=== PATIENT | male | born 1945 | race Caucasian/White ===

== ENCOUNTER 2018-09-05 01:58 | Inpatient (IN) | payer MEDICARE, MEDICAID ==
[~2018-09-05] VITALS: Ht 172.7 cm; Wt 86.2 kg
[~2018-09-05 01:58] MED LIST: ALLO100T PO; ASPI-1159 PO; COR12 PO; CORDARONE PO; DUTA0.5C2 PO; FERR-63 PO; FURO-151 PO; GABA100C PO; GLV55 PO; IMDUR PO; KDUR10 PO; LEVO5TAB29 PO; MONT10TA21 PO; PLAVIX PO; SIMV40TA5 PO; TAMS-11 PO; TRAM50TA94 PO; VALS160T2 PO; ZET10 PO
[2018-09-05] MEDS: NITROGLYCERIN 0.4MG TABLET SL SL PRN ×2 (03:08→03:38)
[2018-09-05 04:34] LABS: HEMATOCRIT. 33.3 % (42.0-52.0); HEMOGLOBIN. 11.3 g/dL (14.0-18.0); MEAN CORPUSCULAR HEMOGLOBIN 32.5 pg (28.0-32.0); MEAN CORPUSCULAR VOLUME 95.9 fL (80.0-94.0); MEAN PLATELET VOLUME 8.6 fl (7.4-10.4); PLATELET 158 x1000/uL (130-400); RED BLOOD CELL COUNT 3.47 mill/uL (4.7-6.1); RED CELL DISTRIBUTION WIDTH 14.5 % (11.6-14.6)
[2018-09-05 04:40] LABS: CHLORIDE 114 mEq/L (98-107)
[2018-09-05 04:45] LABS: INR 1.1; PARTIAL THROMBOPLASTIN TIME 26.8 sec (23.4-31.0); PROTHROMBIN TIME 10.6 sec (9.1-11.1)
[2018-09-05 04:56] LABS: PLATELET ESTIMATE NORMAL
[2018-09-05] MEDS ORDERED: SODIUM CHLORIDE 0.9% 1,000 ML IV ONE (05:30)
[2018-09-05] MEDS ORDERED: ACETAMINOPHEN 325MG TABLET PO PRN (07:45)
[2018-09-05] MEDS ORDERED: IPRATROPIUM/ALBUTEROL 0.5-3(2.5)MG/3ML NEB INH PRN (07:45)
[2018-09-05] MEDS ORDERED: ONDANSETRON HCL 4MG/2ML INJ IV PRN (07:45)
[2018-09-05] MEDS ORDERED: CLONIDINE 0.1MG TABLET PO PRN (07:45)
[2018-09-05] MEDS ORDERED: DOCUSATE SODIUM 100MG CAPSULE PO PRN (07:45)
[2018-09-05] MEDS ORDERED: HYDROCODONE/ACETAMINOPHEN 5/325MG TABLET PO PRN (07:45)
[2018-09-05] MEDS ORDERED: MORPHINE SULFATE 10 MG/ML CPJ IV PRN (07:45)
[2018-09-05 10:38] VITALS: BP 110/55
[2018-09-05] MEDS: ASPIRIN 81MG EC TABLET PO SCH (11:34)
[2018-09-05] MEDS: ENOXAPARIN 30MG/0.3ML SYR SUBCUT SCH ×2 (11:35→20:21)
[2018-09-05 12:00] VITALS: BP 122/70
[2018-09-05] MEDS ORDERED: DEXTROSE 50% WATER 50ML SYRINGE IV PRN (12:45)
[2018-09-05] MEDS: BLOOD SUGAR DIAGNOSTIC STRIP TEST SCH ×3 (12:56→19:55)
[2018-09-05] MEDS: INSULIN LISPRO 100 UNITS/ML SUBCUT SCH ×3 (13:06→20:22)
[2018-09-05 16:00] VITALS: BP 129/70
[2018-09-05 16:40] LABS: CREATINE KINASE MB FRACTION 1.2 ng/mL (0.5-3.6)
[2018-09-05 16:43] LABS: CREATINE KINASE 76 IU/L (39-308)
[2018-09-05 20:00] VITALS: BP 126/72
[2018-09-05] MEDS: CARVEDILOL 12.5MG TABLET PO SCH (20:21)
[2018-09-05] MEDS ORDERED: ATORVASTATIN CALCIUM 40MG TABLET PO SCH (21:00)
[2018-09-06] VITALS: BP 107/50
[2018-09-06 00:22] LABS: CREATINE KINASE 72 IU/L (39-308)
[2018-09-06 00:23] LABS: CREATINE KINASE MB FRACTION 1.2 ng/mL (0.5-3.6)
[2018-09-06 04:00] VITALS: BP 106/54
[2018-09-06] MEDS: BLOOD SUGAR DIAGNOSTIC STRIP TEST SCH ×2 (05:36→13:30)
[2018-09-06 06:14] LABS: HEMATOCRIT. 31.3 % (42.0-52.0); HEMOGLOBIN. 10.8 g/dL (14.0-18.0); MEAN PLATELET VOLUME 8.9 fl (7.4-10.4); PLATELET 158 x1000/uL (130-400); RED BLOOD CELL COUNT 3.26 mill/uL (4.7-6.1); RED CELL DISTRIBUTION WIDTH 14.1 % (11.6-14.6)
[2018-09-06 06:27] LABS: CHLORIDE 117 mEq/L (98-107)
[2018-09-06 06:40] LABS: LDL CHOLESTEROL 31 mg/dL (5-100)
[2018-09-06 06:42] LABS: HDL CHOLESTEROL 43 mg/dL (40-59)
[2018-09-06 08:00] VITALS: BP 125/66
[2018-09-06] MEDS ORDERED: LOSARTAN POTASSIUM 25 MG TABLET PO SCH (09:00)
[2018-09-06] MEDS: ENOXAPARIN 30MG/0.3ML SYR SUBCUT SCH (09:00)
[2018-09-06 09:36] LABS: PLATELET ESTIMATE NORMAL
[2018-09-06] MEDS: ASPIRIN 81MG EC TABLET PO SCH (09:36)
[2018-09-06] MEDS: CARVEDILOL 12.5MG TABLET PO SCH (09:36)
[2018-09-06] MEDS: INSULIN LISPRO 100 UNITS/ML SUBCUT SCH ×2 (09:37→13:10)
[2018-09-06 11:42] VITALS: BP 125/66
== END 2018-09-06 15:02 | disposition home or self-care (01) | DRG 313 ==
LOC: ER 01:58 → 7WST 05:19 → EDBEDREQTM 05:21 → EDBEDREQ 05:21 → SUPCPDRO 07:43 → ENRESERV 08:39
PROVIDERS: ADMIT Hospitalist; ATTEND Hospitalist
DX: R07.89 Other chest pain (principal); E11.22 Type 2 diabetes mellitus with diabetic chronic kidney disease; E78.5 Hyperlipidemia, unspecified; I12.9 Hypertensive chronic kidney disease with stage 1 through stage 4 chronic kidney disease, or unspecified chronic kidney disease; I25.10 Atherosclerotic heart disease of native coronary artery without angina pectoris; I25.5 Ischemic cardiomyopathy; N18.9 Chronic kidney disease, unspecified; I25.2 Old myocardial infarction; Z95.5 Presence of coronary angioplasty implant and graft; Z86.73 Personal history of transient ischemic attack (TIA), and cerebral infarction without residual deficits; Z86.12 Personal history of poliomyelitis; Z90.49 Acquired absence of other specified parts of digestive tract; Z79.82 Long term (current) use of aspirin; Z79.899 Other long term (current) drug therapy; Z82.49 Family history of ischemic heart disease and other diseases of the circulatory system; Z83.3 Family history of diabetes mellitus
CPT/HCPCS: 36415; 71045; 80061; 82550; 82553; 82962; 83036; 83735; 83880; 84484; 93005; 93306; 93970; 94640; 99285; J1650; J1815; J2270; J2405; J7620

== ENCOUNTER 2019-07-10 16:45 | Inpatient (IN) | payer MEDICARE, MEDICAID ==
[~2019-07-10] VITALS: Ht 172.7 cm; Wt 88.0 kg
[~2019-07-10 16:45] MED LIST changes: -ASPI-1159 PO; +ASPI-1393 PO; +EZET10TA13 PO; -ZET10 PO
[2019-07-10 18:51] LABS: EOSINOPHILS % 12.2 % (0.0-5.0); HEMATOCRIT. 31.8 % (42.0-52.0); LYMPHOCYTES % 21.2 % (20.0-50.0); MEAN CORPUSCULAR HEMOGLOBIN 32.8 pg (28.0-32.0); MEAN CORPUSCULAR VOLUME 94.9 fL (80.0-94.0); MEAN PLATELET VOLUME 8.7 fl (7.4-10.4); MONOCYTES % 8.9 % (2.0-8.0); NEUTROPHILS % 56.7 % (40.0-76.0); PLATELET 152 x1000/uL (130-400); RED BLOOD CELL COUNT 3.36 mill/uL (4.7-6.1); RED CELL DISTRIBUTION WIDTH 14.4 % (11.6-14.6)
[2019-07-10 18:56] LABS: CHLORIDE 113 mEq/L (98-107)
[2019-07-10 19:00] LABS: ETHANOL BLOOD < 10 mg/dL
[2019-07-10 19:19] LABS: PARTIAL THROMBOPLASTIN TIME 26.7 sec (23.4-31.0); PROTHROMBIN TIME 10.4 sec (9.6-11.0)
[2019-07-10 20:08] LABS: CLARITY URINE CLEAR (CLEAR); COLOR URINE YELLOW (YELLOW); KETONES URINE NEGATIVE (NEGATIVE); LEUKOCYTE ESTERASE URINE NEGATIVE (NEGATIVE); NITRITE URINE NEGATIVE (NEGATIVE); OCCULT BLOOD URINE NEGATIVE (NEGATIVE); PROTEIN URINE 1+ (NEGATIVE); UROBILINOGEN URINE 0.2 E.U./dL (0.2-1.0)
[2019-07-10] MEDS ORDERED: LORAZEPAM 2MG/ML CPJ IV PRN (20:30)
[2019-07-10] MEDS ORDERED: MAGNESIUM/ALUMINUM HYDROXIDE/SIMETHICONE 30ML UDC PO PRN (20:30)
[2019-07-10] MEDS ORDERED: CLONIDINE 0.1MG TABLET PO PRN (20:30)
[2019-07-10] MEDS ORDERED: IPRATROPIUM/ALBUTEROL 0.5-3(2.5)MG/3ML NEB HHN PRN (20:30)
[2019-07-10] MEDS ORDERED: ACETAMINOPHEN 325MG TABLET PO PRN (20:30)
[2019-07-10] MEDS ORDERED: DOCUSATE SODIUM 100MG CAPSULE PO PRN (20:30)
[2019-07-10] MEDS ORDERED: NA PHOS,M-B/NA PHOS,DI-BA ENEMA 118ML PR PRN (20:30)
[2019-07-10] MEDS ORDERED: HYDROCODONE/ACETAMINOPHEN 5/325MG TABLET PO PRN (20:30)
[2019-07-10] MEDS ORDERED: GUAIFENESIN 200MG/10ML SUGAR FREE UDC PO PRN (20:30)
[2019-07-10] MEDS ORDERED: ONDANSETRON HCL 4MG/2ML INJ IV PRN (20:30)
[2019-07-10] MEDS ORDERED: DIPHENHYDRAMINE 50MG/ML VIAL IV PRN (20:30)
[2019-07-10] MEDS ORDERED: ASPIRIN 81MG TABLET PO ONE (20:45)
[2019-07-10] MEDS ORDERED: MORPHINE SULFATE 2 MG/ML CPJ (NOT FOR IM USE) IV PRN (20:49)
[2019-07-10] MEDS ORDERED: DEXTROSE 50% WATER 50ML SYRINGE IV PRN (23:30)
[2019-07-10] MEDS ORDERED: HYDRALAZINE 20MG/ML VIAL IV PRN (23:31)
[2019-07-11 00:18] LABS: CREATINE KINASE 90 IU/L (39-308)
[2019-07-11 00:19] LABS: CREATINE KINASE MB FRACTION < 1.0 ng/mL (0.5-3.6)
[2019-07-11 01:20] VITALS: BP 111/75
[2019-07-11 05:45] LABS: CHLORIDE 115 mEq/L (98-107)
[2019-07-11 05:54] LABS: LDL CHOLESTEROL 40 mg/dL (5-100)
[2019-07-11 05:55] LABS: CREATINE KINASE 86 IU/L (39-308); T4 FREE 1.27 ng/dL (0.76-1.46)
[2019-07-11 05:56] LABS: CREATINE KINASE MB FRACTION < 1.0 ng/mL (0.5-3.6)
[2019-07-11 05:57] LABS: HDL CHOLESTEROL 48 mg/dL (40-59)
[2019-07-11 06:10] LABS: BASOPHILS % 1.1 % (0.0-2.0); HEMATOCRIT. 31.6 % (42.0-52.0); LYMPHOCYTES % 22.9 % (20.0-50.0); MEAN CORPUSCULAR HEMOGLOBIN 33.1 pg (28.0-32.0); MEAN CORPUSCULAR VOLUME 94.8 fL (80.0-94.0); MEAN PLATELET VOLUME 8.8 fl (7.4-10.4); MONOCYTES % 8.4 % (2.0-8.0); NEUTROPHILS % 55.6 % (40.0-76.0); PLATELET 149 x1000/uL (130-400); RED BLOOD CELL COUNT 3.33 mill/uL (4.7-6.1)
[2019-07-11] MEDS: SODIUM CHLORIDE 0.9% INJ 3ML FLUSH IVF SCH ×3 (06:32→21:28)
[2019-07-11] MEDS: INSULIN LISPRO 100 UNITS/ML SUBCUT SCH ×4 (08:10→21:28)
[2019-07-11 08:20] VITALS: BP 123/63
[2019-07-11] MEDS: BLOOD SUGAR DIAGNOSTIC STRIP TEST SCH ×4 (08:34→21:17)
[2019-07-11] MEDS: ASPIRIN 81MG EC TABLET PO SCH (08:53)
[2019-07-11] MEDS: ENOXAPARIN 40MG/0.4ML SYR SUBCUT SCH (08:55)
[2019-07-11 11:38] LABS: CREATINE KINASE 91 IU/L (39-308)
[2019-07-11 12:00] VITALS: BP 125/71
[2019-07-11 16:00] VITALS: BP 105/72
[2019-07-11 20:00] VITALS: BP 117/76
[2019-07-12] VITALS: BP 129/76
[2019-07-12 04:00] VITALS: BP 127/72
[2019-07-12] MEDS: SODIUM CHLORIDE 0.9% INJ 3ML FLUSH IVF SCH (06:26)
[2019-07-12] MEDS: BLOOD SUGAR DIAGNOSTIC STRIP TEST SCH (06:26)
[2019-07-12 06:44] LABS: CHLORIDE 114 mEq/L (98-107)
[2019-07-12 06:45] LABS: EOSINOPHILS % 11.8 % (0.0-5.0); HEMATOCRIT. 33.3 % (42.0-52.0); HEMOGLOBIN. 11.3 g/dL (14.0-18.0); LYMPHOCYTES % 22.7 % (20.0-50.0); MEAN CORPUSCULAR HEMOGLOBIN 32.4 pg (28.0-32.0); MEAN CORPUSCULAR VOLUME 95.2 fL (80.0-94.0); MEAN PLATELET VOLUME 8.7 fl (7.4-10.4); MONOCYTES % 8.4 % (2.0-8.0); NEUTROPHILS % 56.1 % (40.0-76.0); PLATELET 155 x1000/uL (130-400); RED CELL DISTRIBUTION WIDTH 14.4 % (11.6-14.6)
[2019-07-12] MEDS: INSULIN LISPRO 100 UNITS/ML SUBCUT SCH (07:59)
[2019-07-12 08:00] VITALS: BP 136/75
[2019-07-12 09:09] LABS: COMPLEMENT C3 109 mg/dL (82-167)
[2019-07-12] MEDS: ASPIRIN 81MG EC TABLET PO SCH (09:58)
[2019-07-12] MEDS: ENOXAPARIN 40MG/0.4ML SYR SUBCUT SCH (09:59)
[2019-07-12 10:16] VITALS: BP 136/75
[2019-07-15 13:13] LABS: ANTI-NUCLEAR ANTIBODIES DIRECT Negative (Negative)
== END 2019-07-12 11:10 | disposition home or self-care (01) | DRG 392 ==
LOC: ER 17:04 → 7WST 20:07 → EDBEDREQ 20:25 → EDBEDREQTM 20:25 → ENRESERV 20:38
PROVIDERS: ADMIT Internal Medicine; ATTEND Internal Medicine
DX: K21.9 Gastro-esophageal reflux disease without esophagitis (principal); I13.0 Hypertensive heart and chronic kidney disease with heart failure and stage 1 through stage 4 chronic kidney disease, or unspecified chronic kidney disease; N17.9 Acute kidney failure, unspecified; R07.9 Chest pain, unspecified; I25.10 Atherosclerotic heart disease of native coronary artery without angina pectoris; N18.9 Chronic kidney disease, unspecified; E78.5 Hyperlipidemia, unspecified; E11.22 Type 2 diabetes mellitus with diabetic chronic kidney disease; I25.5 Ischemic cardiomyopathy; N40.0 Benign prostatic hyperplasia without lower urinary tract symptoms; I50.9 Heart failure, unspecified; M71.20 Synovial cyst of popliteal space [Baker], unspecified knee; M10.9 Gout, unspecified; I25.2 Old myocardial infarction; Z86.711 Personal history of pulmonary embolism; Z82.49 Family history of ischemic heart disease and other diseases of the circulatory system; Z86.12 Personal history of poliomyelitis; Z83.3 Family history of diabetes mellitus; Z79.82 Long term (current) use of aspirin; Z79.899 Other long term (current) drug therapy; Z79.01 Long term (current) use of anticoagulants; Z79.02 Long term (current) use of antithrombotics/antiplatelets
CPT/HCPCS: 36415; 71045; 76770; 80048; 80061; 80320; 81003; 82550; 82553; 82962; 83880; 84439; 84443; 84484; 86038; 86160; 93005; 93306; 93970; 99285; J1650; J1815; G0480

== ENCOUNTER 2019-11-13 21:57 | Emergency (ER) | payer MEDICARE, MEDICAID ==
[~2019-11-13] VITALS: Ht 170.2 cm; Wt 82.0 kg
[~2019-11-13 21:57] MED LIST changes: -ASPI-1393 PO; +ASPI-1497 PO; +SIMV-46 PO; -SIMV40TA5 PO
[2019-11-13] MEDS ORDERED: ASPIRIN 81MG TABLET PO ONE (22:45)
[2019-11-13] MEDS: NITROGLYCERIN 0.4MG TABLET SL SL PRN ×2 (23:03→23:35)
[2019-11-13 23:06] LABS: BASOPHILS % 0.9 % (0.0-2.0); EOSINOPHILS % 12.1 % (0.0-5.0); HEMATOCRIT. 35.5 % (42.0-52.0); HEMOGLOBIN. 12.1 g/dL (14.0-18.0); LYMPHOCYTES % 20.4 % (20.0-50.0); MEAN CORPUSCULAR HEMOGLOBIN 32.4 pg (28.0-32.0); MEAN CORPUSCULAR VOLUME 94.7 fL (80.0-94.0); MEAN PLATELET VOLUME 8.5 fl (7.4-10.4); MONOCYTES % 7.7 % (2.0-8.0); NEUTROPHILS % 58.9 % (40.0-76.0); PLATELET 150 x1000/uL (130-400); RED BLOOD CELL COUNT 3.74 mill/uL (4.7-6.1); RED CELL DISTRIBUTION WIDTH 14.5 % (11.6-14.6)
[2019-11-13 23:12] LABS: CHLORIDE 109 mEq/L (98-107)
[2019-11-14] MEDS ORDERED: KETOROLAC 15MG/ML VIAL IV ONE (02:30)
[2019-11-14 02:35] VITALS: BP 110/65
== END 2019-11-14 02:41 | disposition home or self-care (01) ==
LOC: ER 21:57
DX: R07.89 Other chest pain (principal); E11.9 Type 2 diabetes mellitus without complications; I10 Essential (primary) hypertension; I25.10 Atherosclerotic heart disease of native coronary artery without angina pectoris; I25.2 Old myocardial infarction; Z90.49 Acquired absence of other specified parts of digestive tract; Z79.82 Long term (current) use of aspirin; Z79.899 Other long term (current) drug therapy
CPT/HCPCS: 36415; 71045; 80053; 83880; 84484; 85025; 93005; 96374; 99285; J1885